=== PATIENT | male | born 1930 | race Caucasian/White ===

== ENCOUNTER 2018-02-10 13:30 | Inpatient (IN) | payer MEDICARE, BC ==
[2018-02-20] MEDS ORDERED: METOCLOPRAMIDE 10 MG TABLET PO ONE (06:00)
[2018-02-20] MEDS ORDERED: CEFAZOLIN 2 Gram 2 GM/50 ML BAG IVPB ONE (06:00)
[2018-02-20] MEDS ORDERED: MECLIZINE 25 MG TABLET PO ONE (06:00)
[2018-02-20] MEDS ORDERED: FAMOTIDINE 20MG TABLET PO ONE (06:00)
[2018-02-20] MEDS ORDERED: CELECOXIB 100 MG CAPSULE PO ONE (06:00)
[2018-02-20] MEDS ORDERED: OXYCODONE HCL/APAP 5MG/325MG TABLET PO PRN (12:50)
[2018-02-20] MEDS ORDERED: HYDROCODONE/APAP 5/325MG TABLET PO PRN ×2 (12:50)
[2018-02-20] MEDS ORDERED: AL HYDROX/MAG HYDROX 30ML UD PO PRN (13:00)
[2018-02-20] MEDS ORDERED: METOCLOPRAMIDE HCL 10 MG/2 ML VIAL IVP PRN (13:00)
[2018-02-20] MEDS ORDERED: DIPHENHYDRAMINE HCL 25 MG CAPSULE PO PRN (13:00)
[2018-02-20] MEDS ORDERED: SENNOSIDES/DOCUSATE SODIUM UD CAPSULE PO PRN (13:00)
[2018-02-20] MEDS ORDERED: ZOLPIDEM TARTRATE 5 MG TABLET PO PRN (13:00)
[2018-02-20] MEDS ORDERED: NALOXONE 0.4 MG/1 ML VIAL IVP PRN (13:00)
[2018-02-20] MEDS ORDERED: ONDANSETRON HCL IV 4 MG/2 ML VIAL IVP PRN (13:00)
[2018-02-20] MEDS ORDERED: HYDROMORPHONE HCL 2 MG/ML VIAL IV PRN (13:00)
[2018-02-20] MEDS ORDERED: MAGNESIUM HYDROXIDE 30 ML UDC PO PRN (13:00)
[2018-02-20] MEDS ORDERED: ACETAMINOPHEN 1,000 MG/100 ML BTL IV ONE (13:49)
[2018-02-20] MEDS ORDERED: PNEUM 13-VAL/PF 0.5 ML IM ONE (15:35)
[2018-02-20] MEDS ORDERED: LIDOCAINE 2% MDV (20MG/ML) 20ML VIAL IV ONE (15:44)
[2018-02-20] MEDS ORDERED: EPHEDRINE SULFATE 50 MG/ML ML IV ONE (15:44)
[2018-02-20] MEDS ORDERED: MIDAZOLAM HCL 2MG/2ML VIAL IV ONE (15:44)
[2018-02-20] MEDS ORDERED: PROPOFOL 10 MG/ML VIAL IV ONE (15:44)
[2018-02-20] MEDS ORDERED: FENTANYL PF 100MCG/2ML VIAL IV ONE (15:44)
[2018-02-20] MEDS: RINGERS SOLUTION,LACTATED 1,000 ML IV SCH (17:46)
--- NOTE | 2018-02-20 18:04 | Rehab Evaluation ---
Patient Information - Patient Information Diagnosis: OA L hip, s/p L SAEID Ordered Treatment: PT Evaluate and Treat Status: Initial Evaluation Surgery: Yes (L SAEID) Date of Surgery: 02/20/18 History: Detail (Pt has had left hip pain that has been getting progressively worse over the past two years.) Past Medical/Surgical Hx: PAST MEDICAL/SURGICAL HISTORY Past Surgical History bladder sx hernia repair Bilat CTR PMH - Respiratory Hx Respiratory Disorders No PMH - Cardiovascular Hx Cardiovascular Disorders Yes Hx Abnormal EKG Yes: RBBB Exercise Tolerance Good Comment: hyperlipidemia PMH - Neuro Hx Neurological Disorders Yes Hx Dizziness Yes: at times Comment: 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 He will not be using the upper level immediately after surgery. He has walk in shower w/no grab bars; he has elevated toilet seat.) Precautions: [place], Fall - Time With Patient Total Time Spent With Patient (Min): 15 Treatment Procedures: Detail (PT Evaluation) Subjective Information - Subjective Information Per Patient (Upon initial visit at 3:40 p.m., pt was unable to move his feet and could lightly feel touch on the bottom of his left foot. Upon return at 5: 30, he was up in chair and reported numbness in the groin and pelvic region that was improving, but he could feel and move B LEs readily. He reported no pain, but was somewhat anxious about discomfort around pelvic region.) Objective Data - Pain Pain Present: No Pain Scale Used: Numeric (1 - 10) - Mental Status Patient Orientation: Oriented x3 - Visual Perception Appears within normal limits for therapeutic activities - ROM Not within normal limits (AROM in R hip and B knees and ankles was WNL in all planes. L hip limited by posterior approach precautions.) - Strength/Tone Not within normal limits (Pt exhibits 3/5 strength in L hip flexion, abduction, adduction, extension, 4/5 strength in L knee flexion and extension, 4+/5 L ankle dorsiflexion. Right LE muscle groups are grossly 4+/5.) - Coordination Appears within normal limits for therapeutic activities - Bed Mobility Needs Assist (Required CGA for L LE out of bed, VCs for precautions.) - Transfers Needs Assist (Required CGA for sit<>stand transfers and VCs for technique.) - Balance Balance Sitting: Good Balance Standing: Good - Sensation Intact (Intact to light touch.) - Gait Detail (Performed only stand pivot transfer to bedside chair due to discomfort in pelvis/groin, urinary incontinence.) Therapy Assessment - Therapy Assessment Detail (Pt exhibits mobility, transfer and gait impairments consistent with his post-surgical condition. He is a good candidate for inpatient physical therapy. ) Patient Education - Patient Education Teaching Topic: Equipment Use, Exercise/Activity, Precautions Response: Return Demonstration, Reinforcement Needed, Verbalize Understanding Teaching Method: Discussion Teaching Recipient: Patient Barriers To Learning: None Problem List - Problem List Physical Therapy Problem List: Detail (1. Requires assist for bed mobility. 2. Requires assist for transfers. 3. Difficulty walking, ascending/descending stairs.) Goals - Goals Physical Therapy Goals: 1. Pt will safely and independently get into/out of bed. 2. Pt will safely and independently perform sit/stand transfers. 3. Pt will verbalize total hip arthroplasty precautions. 4. Pt will ambulate household distances, including ascending/descending three steps, with appropriate assistive device and CGA/SBA. Prognosis - Prognosis Good Plan - Plan Physical Therapy Plan: Pt will be seen 1-2 times tomorrow to facilitate bed mobility, transfers, and gait for safe return home.
[2018-02-20] MEDS: CEFAZOLIN 2 Gram 2 GM/50 ML BAG IVPB SCH (18:53)
[2018-02-20] MEDS: OXYCODONE HCL/APAP 5MG/325MG TABLET PO PRN (21:13)
[2018-02-20] MEDS: ASPIRIN 325 MG TAB ENTERIC-COATED PO SCH (21:14)
[2018-02-20] MEDS ORDERED: SIMVASTATIN 10MG TABLET PO SCH (22:00)
[2018-02-21] MEDS: CEFAZOLIN 2 Gram 2 GM/50 ML BAG IVPB SCH ×2 (02:30→11:00)
[2018-02-21] MEDS: OXYCODONE HCL/APAP 5MG/325MG TABLET PO PRN (03:39)
[2018-02-21] MEDS: RINGERS SOLUTION,LACTATED 1,000 ML IV SCH (04:58)
--- NOTE | 2018-02-21 09:41 | Operative Note ---
DATE OF SURGERY: 02/20/2018 Surgeon: Lance Cheng DO PREOPERATIVE DIAGNOSIS: Primary osteoarthritis of the left hip. POSTOPERATIVE DIAGNOSIS: Primary osteoarthritis of the left hip. OPERATION: Left total hip arthroplasty. DESCRIPTION OF PROCEDURE: This 87-year-old male was taken to the operating room and placed in the supine position on the operating room table. Spinal anesthetic was induced. The patient was then placed in the right lateral decubitus position and bolstered perpendicular to the floor. The left hip was prepped with Hibiclens and draped in the usual sterile fashion. All scrub personnel wore personal isolation suits. A lateral hip incision was made dissecting down through the skin and subcutaneous tissue. Hemostasis obtained with the electrocautery. The tensor was split in line with the skin incision as was the gluteus veronica to expose the short rotators posteriorly. These were divided with the electrocautery and the Steinmann pins were used as retractors, one superiorly, one posterosuperiorly, and one posteroinferiorly to expose the acetabulum. The distance from the greater trochanter, the abida on the greater trochanter to the proximal pin was measured and restored to anatomic height at the completion of the procedure. The hip was then dislocated and the neck amputated. Cobra retractor was placed anteriorly. Marked disruption of the labrum was identified. This was sharply divided and removed. The acetabulum was then reamed starting with a 52 mm reamer in 1 mm increments to a size 58 to the base of the condyloid notch. We then placed a 56 mm trial in the acetabulum and the 58 then seemed to be the appropriate size. A size 58 Trident cup was impacted into place in approximately 20 degrees of anteversion and 40 degrees of abduction. The cup was seated fully and was stable. Trial liner was subsequently placed. We then directed our attention to the femur. A box osteotome was used to cut the proximal femur. A hand straightener was placed on the shaft and then using an alternating ream/broach technique we countersunk the 6 broach and calcar reamer was used. Subsequently, a 7 and then an 8 broach was seated which was secure and subsequently we reduced the hip with a 30 mm neck and a +0 head. The hip was reduced and taken through range of motion and found to be stable. Flexion to 110 and internal rotation to about 50 degrees with no evidence of instability was identified. This was somewhat difficult because of the patient's contracted capsule but wide abduction and external rotation with no instability was noted. The hip was then dislocated and the trial components were removed. Subsequently a 0 degree 36 mm Trident acetabular liner was impacted into place and a size 8 collared Secur-Fit femoral component was impacted into place and a 36 mm +0 L-Fit head was used. The hip was again reduced, found to be stable. The wound was copiously irrigated with lactated Ringer's solution and suctioned. The short rotators were reattached to the posterior aspect of the greater trochanter using drill holes with #5 Ethibond suture. Once this had been repaired. A drain was placed through a separate stab incision. The tensor was closed with #2 Vicryl, the subcutaneous tissue closed with 0 Vicryl, the skin was stapled. Sterile dressings were applied and the patient taken to the recovery room in satisfactory condition. GROSS PATHOLOGY: This patient demonstrated severe osteoarthritis of the left hip with severe full-thickness articular cartilage loss, subchondral cyst formation was noted. FINAL COMPONENTS INSERTED: A Rosey Secur-Fit femoral component, a collared size 8 was used. A size 58 mm Trident cup. A 36 mm X3 liner 0 degree was used. A 36 mm +0 L-Fit head. CC: Marina REDMOND
[2018-02-21] MEDS: ASPIRIN 325 MG TAB ENTERIC-COATED PO SCH (09:45)
--- NOTE | 2018-02-21 09:56 | Physical Therapy Tx Note ---
Physical Therapy Tx Note - Treatment Note Tolerated: Good Total Time Spent With Patient: 30 Physical Therapy Tx Note: Detail (The patient was independent with supine to and from sit transfer and sit to and from stand transfer and toilet transfer. The patient ambulated with front wheeled walker WBAT on the L LE a distance of 120 feet x 1 WBAT on the L LE ,independently. The patient ambulated on steps using proper technique with use of one railing and folded walker with CG/SBA for safety using proper technique. The patient was able to verbalize and follow THR precautions. The patient completed the following THR HEP: gluteal sets, quad sets, hamstring sets, ankle pumps, hip abduction supine and heel slides. The patient has met all inpatient PT goals and is discharged from inpatient PT.) Physical Therapy Problem List: Detail (1. Requires assist for bed mobility. 2. Requires assist for transfers. 3. Difficulty walking, ascending/descending stairs.) Physical Therapy Goals: GOALS MET: 1. Pt will safely and independently get into/out of bed. 2. Pt will safely and independently perform sit/stand transfers. 3. Pt will verbalize total hip arthroplasty precautions. 4. Pt will ambulate household distances, including ascending/descending three steps, with appropriate assistive device and CGA/SBA. Physical Therapy Plan: The patient is discharged from inpatient PT and is to receive Home PT.
[2018-02-21] MEDS ORDERED: MELOXICAM 7.5 MG TABLET PO SCH (10:00)
--- NOTE | 2018-02-21 10:59 | Rehab Evaluation ---
Patient Information - Patient Information Diagnosis: OA L hip, s/p L SAEID Ordered Treatment: OT Evaluate and Treat Status: Initial Evaluation Surgery: Yes (L SAEID) Date of Surgery: 02/20/18 History: Detail (Pt has had left hip pain that has been getting progressively worse over the past two years.) Past Medical/Surgical Hx: PAST MEDICAL/SURGICAL HISTORY Past Surgical History bladder sx hernia repair Bilat CTR PMH - Respiratory Hx Respiratory Disorders No PMH - Cardiovascular Hx Cardiovascular Disorders Yes Hx Abnormal EKG Yes: RBBB Exercise Tolerance Good Comment: hyperlipidemia PMH - Neuro Hx Neurological Disorders Yes Hx Dizziness Yes: at times Comment: 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 Pt assists spouse with home mgmt, meal prep activities.) Social History: Detail (Pt lives with spouse in a two story house with basement and two steps to enter. He will not be using the upper level or basement immediately after surgery. He has a walk in shower, no grab bars; he has elevated toilet seat with handles. Pt also has a womens volleyball coach, sock aid, long shoe horn, long bath sponge, walker and straight cane.) Precautions: [place], Fall, Other (total hip precautions) - Time With Patient Total Time Spent With Patient (Min): 40 Treatment Procedures: Detail (OT eval low complexity) Subjective Information - Subjective Information Per Patient Objective Data - Pain Pain Present: Yes (2-05/25) - Mental Status Patient Orientation: Oriented x3 - Visual Perception Appears within normal limits for therapeutic activities - ROM Not within normal limits (Right shoulder flexion impaired due to fall about 6 months ago. Pt reports his UE ROM is functional.) - Strength/Tone Not within normal limits (Right shoulder strength 2-/5 due to fall about 6 months ago, remaining cipriano UE strength WNL.) - Coordination Appears within normal limits for therapeutic activities - Bed Mobility Independent (Ind with supine to sit.) - Transfers Independent (Ind with sit to stand from EOB.) - Balance Balance Sitting: Good Balance Standing: Good - Sensation Intact - ADL's/IADL's Detail (Pt educated and able to demonstrate learning of modified LE dressing techniques using womens volleyball coach, sock aid and long shoe horn while adhering to total hip precautions. Pt educated re: shower safety and kitchen modifications, pt verbalized understanding.) Therapy Assessment - Therapy Assessment Detail (Pt is Ind with use of adaptive equipment for modified LE dressing techniques while maintaining total hip precautions.) Problem List - Problem List Physical Therapy Problem List: Detail (1. Requires assist for bed mobility. 2. Requires assist for transfers. 3. Difficulty walking, ascending/descending stairs.) Occupational Therapy Problem List: Detail (No current IP OT problems identified. ) Goals - Goals Physical Therapy Goals: GOALS MET: 1. Pt will safely and independently get into/out of bed. 2. Pt will safely and independently perform sit/stand transfers. 3. Pt will verbalize total hip arthroplasty precautions. 4. Pt will ambulate household distances, including ascending/descending three steps, with appropriate assistive device and CGA/SBA. Occupational Therapy Goals: No current IP OT goals identified. Prognosis - Prognosis Good Plan - Plan Physical Therapy Plan: The patient is discharged from inpatient PT and is to receive Home PT. Occupational Therapy Plan: No further IP OT recommended. Thank you for this referral.
[2018-02-21] MEDS ORDERED: ACETAMINOPHEN 325 MG TAB PO PRN (11:30)
--- NOTE | 2018-02-24 09:40 | Discharge Summary ---
DATE OF ADMISSION: 02/20/2018 DATE OF DISCHARGE: 02/21/2018 ADMITTING DIAGNOSIS: Osteoarthritis of the left hip. DISCHARGE DIAGNOSIS: Osteoarthritis of the left hip. OPERATIVE PROCEDURE: Elective left total hip arthroplasty. DESCRIPTION: This 87-year-old male was taken to the operating room for left total hip arthroplasty and tolerated the operative procedure well. The drain was removed the first postoperative day. During the night of the surgery, he was given Percocet on 2 occasions and became dizzy approximately an hour to an hour and a half after each administration. This was then discontinued. He was hypotensive at that time too. Fluids were increased. At the time of discharge, the patient's blood pressure had gotten back up to normal range in the 130s/70s and stable. The patient was not demonstrating any evidence of neurovascular compromise whatsoever. He was standing and walking satisfactorily with his walker and cleared physical therapy. He had no sign of chest pain or shortness of breath. No evidence of DVT. The patient will be discharged and will follow up in the clinic in 2 weeks. He will wear his RAMÍREZ hose during the day and remove them at night. He will have in-home PT. He will continue to take his aspirin 81 mg daily. I have given him a prescription for Tylenol #3 to take very sparingly, to take 1 every 6 hours as needed but hopefully not take any. He was given 15. Routine wound care instructions were given. Should he have any problems prior to being seen, he was instructed to call my office. [facility]
== END 2018-02-21 13:42 | disposition home health service (06) | DRG 470 ==
LOC: MEDSURG 02-20 09:26
PROVIDERS: ADMIT Orthopaedic Surgery; ATTEND Orthopaedic Surgery
PROC: 0SRB06A Replacement of Left Hip Joint with Oxidized Zirconium on Polyethylene Synthetic Substitute, Uncemented, Open Approach (ICD-10-PCS; principal; 2018-02-20 11:30)
DX: M16.12 Unilateral primary osteoarthritis, left hip (principal)
CPT/HCPCS: 90670; 94760; 97110; 97530; C1776; J7120